=== PATIENT | male | born 1985 | race Caucasian/White ===

== ENCOUNTER → 2017-12-26 | Day surgery (SDC) | payer OTHER ==
[~2017-12-26] VITALS: Ht 182.9 cm; Wt 76.7 kg
[~2017-12-26] MED LIST: AMOXICILLIN875 M1 PO; BACTRIM DS TAB1 EACH PO; BUSPIRONE HCL5 M1 PO; DIVALPROEX SOD250 M3 PO; FLOMAX0.4 M1 PO; IBUPROFEN800 M1 PO; ONDANSETRON HCL4 MG PO; REGLAN10 M1 PO; RIZATRIPTAN10 M1 PO; TAMSULOSIN HCL0.4 M1 PO; TRAMADOL HCL50 M1 PO; VENLAFAXINE HCL75 M1 PO; VENTOLIN HFA18 GM INH
--- NOTE | 2017-12-26 12:52 | RADIOLOGY REPORT ---
EXAMINATION: CR ABDOMEN/INTRAOPERATIVE FLUOROSCOPY CLINICAL INDICATION: Left ureteroscopy COMPARISON: CT 12/22/2017 TECHNIQUE/FINDINGS: Fluoroscopic equipment was dedicated to the operating room for the performance of an intraoperative procedure. 17 spot films were acquired and are archived in PACS. Please refer to operative notes for procedural detail. FLUOROSCOPY TIME: 19.2 seconds IMPRESSION: Administrative dictation for intraoperative fluoroscopy and image archiving in PACS. Please refer to operative notes for details.
--- NOTE | 2017-12-26 19:30 | Operative Report ---
Operative/Inv Procedure Report Surgery Date: 12/26/17 Name of Procedure: cystoscopy: left stent insertion Pre-Operative Diagnosis: left renal colic with stone Post-Operative Diagnosis: same Estimated Blood Loss: scant Surgeon/Pole Framer Machine: Jesus Morrison MD Anesthesia: moderate sedation Complications: none Condition: now pain free Operative/Procedure Note Note: The patient was taken to the operating room placed OR table in supine position. Timeout was performed, with the patient awake, in order to confirm anesthesia, and other pertinent perioperative information. After adequate anesthesia and antibiotics the patient was then placed lithotomy stirrups, draped and prepped in the usual surgical fashion. A 22 [place] cystoscope sheath with 30 angle lens was inserted into the urethra, subsequently into the bladder without difficulty. Upon thorough and systematic surveillance, the bladder was noted to be free of tumor, free of stone. Both ureteral orifices were in their orthotopic position with clear efflux from the right side. The left orifice was intubated with a tiger tail catheter. Retrograde pyelogram, with fluoroscopy, was gently performed in order to confirm hydronephrosis, and a 9 mm left ureter filling defect, consistent with stone, and proximal hydronephrosis. The retrograde pyelogram was also helpful in order to map the anatomy of the left ureter and kidney using fluoroscopy. The tiger tail catheter was then removed. The left orifice was then intubated with a 0.035 Glidewire, which was advanced into the left ureter, and renal pelvis, without difficulty, bypassing the left ureter stone. Over this Glidewire a 6 X 24 Bard onlay stent was rail-roaded into the left ureter without difficulty. With the proximal coil of the stent noted in the left renal pelvis, and the distal coil in the bladder, the Glidewire was removed. The stent remained in proper place, confirmed cystoscopically, and fluoroscopically. The bladder was then drained via the cystoscope, which was then removed without difficulty. All sponege needle and instrument count were correct at the end of the case. The patient tolerated the procedure well, and was taken to recovery room in satisfactory condition. Discharge Disposition: Same Day Admissions CC: Jesus Morrison MD
== END ==
LOC: STS 09:41
DX: N13.2 Hydronephrosis with renal and ureteral calculous obstruction (principal); F17.200 Nicotine dependence, unspecified, uncomplicated
CPT/HCPCS: 76000; J2250

== ENCOUNTER → 2018-01-02 | Day surgery (SDC) | payer OTHER ==
[~2018-01-02] VITALS: Ht 182.9 cm; Wt 76.7 kg
--- NOTE | 2018-01-02 19:30 | Operative Report ---
Operative/Inv Procedure Report Surgery Date: 01/02/18 Name of Procedure: left renal ESWL, cystoscopy with left stent removal. Pre-Operative Diagnosis: left renal stone and stent Post-Operative Diagnosis: same Estimated Blood Loss: scant Surgeon/Guide Dog Trainer: Jesus Morrison MD Anesthesia: moderate sedation Specimens: stent Complications: none Condition: improved Operative/Procedure Note Note: The patient was taken to the operating room, and placed on the ESWL table in supine position. Timeout was performed, with the patient awake, in order to confirm correct patients identity, procedure, laterality, anesthesia, and other pertinent perioperative information. After adequate anesthesia and antibiotics, the patient was then positioned so that the LEFT Flank was overlying the ESWL table's cut-out, above the concussion dome of the shockwave generator. Fluroscopy, as well as renal US, was used to locate the stone, and LEFT stent. Using fluoroscopy with AP, and oblique views, the position of the left renal stone was confirmed and optimized in the c-arm crosshairs. The stone, previously in the ureter, and manipulated into the left renal pelvis, was approximately 6 mm in size, and was visible on fluroscopy. Renal ultrasound was also performed on the left side, confirming the presence of the left stone, and no hydronephrosis, with normal parenchyma, and no solid tumor. Flurosocpy was used in an AP and oblique views to maximize the position of the stone for ESWL. After optimized positioning, ESWL was initiated at low power levels. After noting the patient's tolerance to the shockwaves, the power was maximized. The renal stone was noted to bounce/move with each shockwave with real-time renal US visualization. Toward the end of the procedure, the composition of the left stones had changed significantly, indicating the breaking of the left renal stone. A total of 2500 shockwaves were delivered to the stone. The patient was then placed in a frog-leg position, draped and prepped in the usual surgical fashion. A well lubricated, 22 [place] cystoscope sheath with 30 angle lens was inserted without difficulty. On entering the bladder the bladder was noted to be free of tumor, and free of stone. Both ureteral orifices were in their ortotopic positions. The left stent was seen in proper place, protruding through the left ureter orifice. Using the alligator forcep, under direct visualization, the left stent was grasped. The cystoscope along with entire left stent was then gently removed without difficulty. All sponge, needle, and instrument count were correct at the end of the case. The patient the tolerated both the left cysto/stent removal, and left ESWL procedures well. The patient was awakened, then taken to recovery in satisfactory condition via stretcher. The pt. was dischared with pain meds, diet orders, and intructions to catch fragments with straining the urine. The patient was given requisition to have follow-up renal ultrasound and KUB in 2-4 weeks, prior to follow-up visit in my office. Discharge Disposition: Same Day Admissions CC: Prince MCKEON,Jesus
== END ==
LOC: STS 01:18
DX: N20.0 Calculus of kidney (principal); Z87.442 Personal history of urinary calculi; F17.200 Nicotine dependence, unspecified, uncomplicated
CPT/HCPCS: J2250

== ENCOUNTER → 2018-01-30 | Day surgery (SDC) | payer OTHER ==
[~2018-01-30] VITALS: Ht 182.9 cm; Wt 79.4 kg
--- NOTE | 2018-01-30 08:53 | Operative Report ---
Operative/Inv Procedure Report Surgery Date: 01/30/18 Name of Procedure: right renal ESWL, fluoroscopy Pre-Operative Diagnosis: right colic with stone. Post-Operative Diagnosis: same Estimated Blood Loss: none Surgeon/Test Borer: Jesus Morrison MD Anesthesia: moderate sedation Specimens: none Complications: none Operative/Procedure Note Note: The patient was taken to the operating room placed on the OR table in supine position. Timeout was performed, with the patient awake, in order to confirm correct procedure, laterality, anesthesia, and other pertinent perioperative information. After adequate anesthesia and antibiotics, the patient was then positioned over the ESWL table cutout overlying the treatment dome. Fluoroscopy, using AP and oblique views, as well as renal ultrasound, or performed in order to locate the stone. The position of the RIGHT renal stone was optimized, and positioned in the middle of the ESWL crosshairs. The stone was measured to be approximately 6 mm in size. ESWL was initiated at low power, and after 200 shockwaves delivered , noting the patient's tolerance to the shockwaves, the power was increased to maximum. At the end of 2500 shockwaves, fluoroscopy confirms the change in consistency of the stone, indicating shattering of the stone. All sponge needle and instrument count were correct at the end of the case. The patient tolerated the procedures well, and was taken to the recovery room in satisfactory condition. The patient is discharged home with pain medication, and follow-up instructions with in 2-3 weeks' time. Discharge Disposition: Same Day Admissions CC: Jesus Morrison MD
== END ==
LOC: STS 04:05
DX: N20.0 Calculus of kidney (principal); Z87.442 Personal history of urinary calculi
CPT/HCPCS: J2250; J2405